=== PATIENT | female | born 1970 ===

== ENCOUNTER 2018-11-07 09:41 | Outpatient (CLI) | payer OTHER | END 2018-11-07 09:42 | disposition home or self-care (01) | LOC: SONOGRAMA 09:41 | DX: E04.1 Nontoxic single thyroid nodule (principal) ==

== ENCOUNTER 2021-05-30 08:36 | Outpatient (CLI) | payer OTHER | END 2021-05-30 11:52 | disposition home or self-care (01) | LOC: SONOGRAMA 08:36 | PROVIDERS: ATTEND Pathology Anatomic Pathology & Clinical Pathology | DX: E04.1 Nontoxic single thyroid nodule (principal) ==

== ENCOUNTER 2022-02-22 23:16 | Emergency (ER) | payer OTHER ==
[~2022-02-22] VITALS: Ht 165.1 cm; Wt 79.4 kg
[2022-02-23] MEDS ORDERED: LEVOTHYROXINE25 MCG (00:11)
[2022-02-23] MEDS ORDERED: FLECAINIDE ACE100 MG (00:12)
[2022-02-23] MEDS ORDERED: LEVSIN/SL0.125 MG SL ×2 (01:00)
[2022-02-23] MEDS ORDERED: PEPCID40 MG PO (01:00)
[2022-02-23] MEDS ORDERED: ONDANSETRON ODT4 MG PO (01:00)
== END 2022-02-23 01:07 ==
LOC: ER 23:16
DX: R10.11 Right upper quadrant pain (principal); Z88.6 Allergy status to analgesic agent

== ENCOUNTER 2024-02-25 05:17 | Inpatient (IN) | payer OTHER ==
[2024-02-19 08:48] LABS: HEMATOCRIT 39.5 % (36.0-45.00); HEMOGLOBIN 13.4 g/dL (12.0-15.00); MEAN CELL VOLUME 75.7 fL (80.00-100.00); MEAN CORPUSCULAR HEMOGLOBIN 25.6 pg (27.00-32.0); MEAN CORPUSCULAR HGB CONC 33.8 g/dl (32.0-36.0); PLATELET COUNT 160 K/uL (150-450); RED BLOOD COUNT 5.22 M/uL (4.00-6.00); RED CELL DISTRIBUTION WIDTH 15.8 % (11.5-14.5)
[2024-02-19 08:54] LABS: PH,URINE 6.5 (5.0-8.0); URINE APPEARANCE Clear; URINE BILIRRUBIN Negative (NEGATIVE); URINE BLOOD Negative; URINE COLOR Yellow; URINE GLUCOSE Negative (NEGATIVE); URINE LEUKOCYTE Negative; URINE NITRATE Negative; URINE PROTEIN Negative (NEGATIVE); URINE UROBILINOGEN 0.2 E.U./dl
[2024-02-19 08:58] LABS: URINE BACTERIA 70.5 uL (0.0-1933); URINE EPITHELIAL CELLS 6.1 uL (0.0-38.8)
[2024-02-19 09:11] LABS: URINE RBC 1.2 uL (0.0-20.8)
[2024-02-19 09:22] LABS: INR 0.98; PARTIAL THROMBOPLASTIN TIME 28.1 SECONDS (22.0-34.0); PROTHROMBIN TIME 10.3 SECONDS (9.0-11.5)
[2024-02-19 09:32] LABS: ALBUMIN 3.8 gm/dL (3.4-5.0); BILIRUBIN TOTAL 0.58 mg/dL (0.3-1.2); CALCIUM 10.6 mg/dL (8.5-10.1); CREATININE SERUM 0.62 mg/dL (0.55-1.02); GFR 100.69; GLOBULINA 3.6 G/DL (2.4-3.5); POTASSIUM 3.92 mEq/L (3.5-5.1); TOTAL PROTEIN 7.4 gm/dL (6.4-8.2)
[~2024-02-25 05:17] MED LIST: FLECAINIDE ACE100 MG; LEVOTHYROXINE25 MCG PO; LEVSIN/SL0.125 MG SL; ONDANSETRON ODT4 MG PO; PEPCID40 MG PO
[2024-02-25] MEDS ORDERED: CEFAZOLIN SODIUM 1,000 MG VIAL ONE (06:59)
[2024-02-25] MEDS ORDERED: DEXAMETHASONE SODIUM PHOSPHATE 4 MG/ML VIAL ONE (07:17)
[2024-02-25] MEDS ORDERED: ONDANSETRON HCL 2 MG/ML VIAL IV PRN (10:00)
[2024-02-25] MEDS ORDERED: ENALAPRILAT DIHYDRATE 1.25 MG/ML VIAL IV PRN (10:00)
[2024-02-25] MEDS ORDERED: ACETAMINOPHEN 500 MG GEL..CAP PO SCH (17:00)
[2024-02-25] MEDS ORDERED: TRAMADOL HCL 50 MG TABLET PO SCH (17:00)
[2024-02-25] MEDS ORDERED: CYCLOBENZAPRINE HCL 5 MG TABLET PO SCH (17:00)
[2024-02-26] MEDS ORDERED: FF) FLECAINIDE ACETATE 50MG TAB PO SCH (09:00)
[2024-02-26] MEDS ORDERED: LEVOTHYROXINE SODIUM 25 MCG TABLET PO SCH (09:00)
[2024-02-26] MEDS ORDERED: Calcium Carbonate 1 TAB TABLET PO NR (15:00)
[2024-02-26] MEDS ORDERED: CALCITRIOL 0.5 MCG CAPSULE PO NR (15:00)
== END 2024-02-26 17:19 | disposition home or self-care (01) | DRG 627 ==
LOC: CIR.AMB 05:17 → O/R 11:23 → SURH 11:23
PROVIDERS: ADMIT Surgery; ATTEND Surgery
PROC: 0GBL0ZZ Excision of Right Superior Parathyroid Gland, Open Approach (ICD-10-PCS; principal; 2024-02-25 09:30)
DX: D35.1 Benign neoplasm of parathyroid gland (principal); Z20.822 Contact with and (suspected) exposure to COVID-19